=== PATIENT | male | born 1945 | race Caucasian/White ===

== ENCOUNTER 2017-12-27 11:55 | Day surgery (SDC) | payer MEDICARE, OTHER ==
[2017-12-27] MEDS: NS 1,000 ML IV (13:03)
[2017-12-27] MEDS ORDERED: LIDOCAINE 2% INJ 100 MG/5 ML SYRINGE As Ordered (14:05)
[2017-12-27] MEDS ORDERED: PROPOFOL 200 MG/20 ML VIAL As Ordered (14:06)
== END 2017-12-27 15:06 | disposition home or self-care (01) ==
LOC: M OPP 11:55
DX: Z12.11 Encounter for screening for malignant neoplasm of colon (principal); K64.0 First degree hemorrhoids; K57.30 Diverticulosis of large intestine without perforation or abscess without bleeding; I10 Essential (primary) hypertension; M12.9 Arthropathy, unspecified; M54.9 Dorsalgia, unspecified; Z96.653 Presence of artificial knee joint, bilateral; Z80.0 Family history of malignant neoplasm of digestive organs; Z83.3 Family history of diabetes mellitus; Z87.891 Personal history of nicotine dependence; Z96.642 Presence of left artificial hip joint
CPT/HCPCS: G0105

== ENCOUNTER → 2023-10-27 | Outpatient (CLI) | payer MEDICARE, OTHER ==
[~2023-10-27] MED LIST: ACET650T12 PO; ACET65TA OR; AMLO1TAB24 PO; ASPI81TA45 OR; ASPI81TA83 OR; Aleve OR; CALCTAB22 OR; CELE1CAP4 PO; COUM1TAB17 OR; COUM1TAB18 OR; COUM2.5T17 PO; GLUCTAB7 PO; LISI20TA5 OR; LISI20TA5 PO; MULTIVIT PO; PERC5TAB8 OR; PERC7.5T8 OR; PERCOCET PO; TURM450C PO; TYLE325T5 PO; TYLENOL; VIT D 2000 OR; VITA500T OR; VITATAB11 PO; [UNRECOGNIZED DRUG - OTHER]; [UNRECOGNIZED DRUG - OTHER]; fish oil PO; oscal PO; vitamin D3 PO; vitamin c PO
== END ==
LOC: M WUC 13:14
PROVIDERS: ATTEND Internal Medicine
DX: R05.3 Chronic cough (principal)

== ENCOUNTER → 2024-04-14 | Outpatient (REF) | payer MEDICARE, OTHER ==
[~2024-04-14] MED LIST changes: +CYAN500T14 PO; +IRBE150T27 PO; +RA T500C2 PO; +THERTAB52 PO
== END ==
LOC: M LAB REF 16:20
PROVIDERS: ATTEND Internal Medicine
DX: L03.113 Cellulitis of right upper limb (principal)

== ENCOUNTER 2024-06-14 08:09 | Day surgery (SDC) | payer MEDICARE, OTHER ==
[~2024-06-14] VITALS: Ht 172.7 cm; Wt 78.5 kg
[~2024-06-14 08:09] MED LIST changes: +CALC500C16 PO; +CIDA500T2 PO; +VITA100024 PO
[2024-06-14] MEDS ORDERED: propofoL 200 MG/20 ML VIAL As Ordered ONE (09:47)
[2024-06-14] MEDS ORDERED: LIDOCAINE 2% 100MG/5ML SDV (FOR ANES.) As Ordered ONE (09:47)
[2024-06-14 10:17] VITALS: TEMP 98
[2024-06-14 10:35] VITALS: BP 132/67; O2SAT 93
== END 2024-06-14 10:42 | disposition home or self-care (01) ==
LOC: M OPP 08:09
PROVIDERS: ATTEND Internal Medicine Gastroenterology
DX: Z12.11 Encounter for screening for malignant neoplasm of colon (principal); Z80.0 Family history of malignant neoplasm of digestive organs; K64.0 First degree hemorrhoids; K57.30 Diverticulosis of large intestine without perforation or abscess without bleeding; I10 Essential (primary) hypertension; Z88.7 Allergy status to serum and vaccine; Z79.899 Other long term (current) drug therapy